=== PATIENT | female | born 1965 | race Caucasian/White ===

== ENCOUNTER 2024-11-24 05:11 | Emergency (ER) | payer OTHER ==
[~2024-11-24] VITALS: Ht 172.7 cm; Wt 70.3 kg
[2024-11-24] MEDS ORDERED: LORAZEPAM 1 MG TABLET ONE (05:58)
[2024-11-24] MEDS: LORAZEPAM 1 MG TABLET PO ONE (05:59)
[2024-11-24] MEDS ORDERED: LORAZEPAM INJ 2 MG/ML VIAL ONE (06:13)
[2024-11-24] MEDS: LORAZEPAM INJ 2 MG/ML VIAL IM ONE (06:18)
[2024-11-24] MEDS ORDERED: DIAZ2TAB PO (06:30)
[2024-11-24 06:36] VITALS: BP 138/82; TEMP 97.8; O2SAT 100
== END 2024-11-24 06:39 | disposition home or self-care (01) ==
LOC: ER 05:22
DX: F41.0 Panic disorder [episodic paroxysmal anxiety] (principal); Z60.2 Problems related to living alone
CPT/HCPCS: 99283; 96372; J2060

== ENCOUNTER 2024-11-26 12:45 | Emergency (ER) | payer BC, OTHER ==
[~2024-11-26] VITALS: Ht 172.7 cm; Wt 70.3 kg
[~2024-11-26 12:45] MED LIST: DIAZ2TAB PO
[2024-11-26] MEDS ORDERED: predniSONE 20 MG TABLET ONE (13:05)
[2024-11-26] MEDS: predniSONE 20 MG TABLET PO ONE (13:11)
[2024-11-26] MEDS ORDERED: IPRATROPIUM NEB FS 0.5 MG/2.5 ML AMPUL.NEB ONE (13:13)
[2024-11-26] MEDS ORDERED: ALBUTEROL FS 2.5 MG/3 ML VIAL.NEB ONE (13:13)
[2024-11-26 13:27] VITALS: O2SAT 98
[2024-11-26] MEDS: IPRATROPIUM NEB FS 0.5 MG/2.5 ML AMPUL.NEB NEB ONE (13:27)
[2024-11-26] MEDS: ALBUTEROL FS 2.5 MG/3 ML VIAL.NEB CONTNEB ONE (13:27)
[2024-11-26] MEDS ORDERED: ALBU18HF2 INH (14:16)
[2024-11-26 14:27] VITALS: O2SAT 100
[2024-11-26 14:32] VITALS: BP 136/85; TEMP 98.3; O2SAT 100
== END 2024-11-26 14:32 | disposition home or self-care (01) ==
LOC: ER 12:47
DX: R06.00 Dyspnea, unspecified (principal); F41.1 Generalized anxiety disorder; Z60.2 Problems related to living alone; Z20.822 Contact with and (suspected) exposure to COVID-19
CPT/HCPCS: 99285; 71045; 87426; 93005; 87804 ×2; 94644; J7512